=== PATIENT | female | born 1980 | race Caucasian/White ===

== ENCOUNTER 2016-10-15 12:21 | Outpatient (CLI) | payer BC ==
[~2016-10-15] VITALS: Ht 170.2 cm; Wt 68.9 kg
[~2016-10-15 12:21] MED LIST: AC325T PO; ACHD5005 PO; ACHYD1T PO; AMOX250C PO; FRS325T PO; HYDR1TAB75 PO; IBP800T PO
--- OUTSIDE RECORDS SUMMARY | 2016-10-15 12:25 | XMS REPORT | Continuity of Care Document ---
Author Author [facility] Organization [facility] Address Unknown Phone Unavailable Allergies Active Description Code Type Severity Reaction Onset Reported/Identified Relationship to Patient Clinical Status Yes albuterol [id number] Drug Allergy Unknown N/A 07/13/2007 Yes loratadine [id number] Drug Allergy Unknown N/A 07/13/2007 Medications Problems Date Dx Coded Attending Type Code Diagnosis Diagnosed By 08/04/2013 AMOR LAKE MD Ot 650 08/04/2013 AMOR LAKE MD Ot V04.81 08/04/2013 AMOR LAKE MD Ot V27.0 11/01/2014 ZE YEN Ot 784.2 Procedures Results Encounters ACCT No. Visit Date/Time Discharge Status Pt. Type Provider Facility Loc./Unit Complaint [id number] 10/16/2014 10:16:00 2014 23:59:59 CLS Outpatient ZE YEN [facility] RAD [id number] 08/03/2013 12:40:00 2012 20:40:00 DIS Inpatient AMOR LAKE MD [facility]
[2016-10-16] MEDS ORDERED: DEXT10TA9 PO (07:20)
[2016-10-16] MEDS ORDERED: OXYC-202 PO (07:20)
== END 2016-10-15 13:26 ==
LOC: PREOP 12:21
PROVIDERS: ATTEND Obstetrics & Gynecology
DX: Z01.818 Encounter for other preprocedural examination (principal); O02.1 Missed abortion

== ENCOUNTER 2016-10-16 06:27 | Day surgery (SDC) | payer BC ==
[~2016-10-16] VITALS: Ht 170.2 cm; Wt 68.9 kg
--- OUTSIDE RECORDS SUMMARY | 2016-10-16 06:30 | XMS REPORT | Continuity of Care Document ---
Author Author [facility] Organization [facility] Address Unknown Phone Unavailable Care Team Providers Care Senior National Account Manager Name Role Phone JAMILA PENA DO PCP Insurance Providers Payer Name Policy Number Subscriber Name Relationship [facility] [id number] Dacia Weaver 19 Self / Same As Patient Advance Directives Directive Response Recorded Date/Time Advance Directives No 10/15/16 1:10pm Health Care Power of Animal Ride Attendant No 10/15/16 1:10pm Organ Donor No 10/15/16 1:10pm Resuscitation Status Full Code 10/15/16 1:10pm Problems No problem information available. Medications Unable to obtain medications. Social History Social History Problem Response Recorded Date/Time Alcohol Use Denies Use 08/03/2013 2:24pm Recreational Drug Use No 08/03/2013 2:24pm Recent Foreign Travel No 08/03/2013 2:24pm Recent Infectious Disease Exposure No 08/03/2013 2:24pm Hospitalization with Isolation Denies 08/04/2013 9:26pm Sexually Transmitted Disease No 10/15/2016 1:10pm Smoking Status Former Smoker 10/15/2016 1:10pm Recent Hopitalizations No 10/15/2016 1:10pm Sexually Transmitted Disease No 10/15/2016 1:10pm Hospitalization with Isolation Denies 08/04/2013 9:26pm Hx Sexually Transmitted Disorders No 10/09/2010 9:40am Query Response Start Date Stop Date Smoking Status Former Smoker Hospital Discharge Instructions No hospital discharge instructions. Plan of Care Discharge Date 10/15/16 1:26pm Prescriptions See Medication Section Functional Status No functional status results. Allergies, Adverse Reactions, Alerts No known allergies. Immunizations No immunization records. Vital Signs Acute Vital Signs Vital Response Date/Time Height (Feet) 5 feet 10/15/2016 1:08pm Height (Inches) 7.00 inches 10/15/2016 1:08pm Height (Calculated Centimeters) 170.086205 cm 10/15/2016 1:08pm Weight (Pounds) 152 pounds 10/15/2016 1:08pm Weight (Ounces) 0.0 oz 10/15/2016 1:08pm Weight (Calculated Grams) 52092.04 gm 10/15/2016 1:08pm Weight (Calculated Kilograms) 68.983521 kilograms 10/15/2016 1:08pm Calculated BMI 23.8 10/15/2016 1:08pm Results No known relevant diagnostic tests, laboratory data and/or discharge summary. Procedures No known history of procedures. Encounters Encounter Location Arrival/Admit Date Discharge/Depart Date Attending Provider Registered Clinic [facility] 10/15/16 12:21pm AMOR LAKE MD
--- OUTSIDE RECORDS SUMMARY | 2016-10-16 06:30 | XMS REPORT | Continuity of Care Document ---
Author Author [facility] Organization [facility] Address Unknown Phone Unavailable Care Team Providers Care Supervisor Power Reactor Name Role Phone JAMILA PENA DO PCP Insurance Providers Payer Name Policy Number Subscriber Name Relationship [facility] [id number] Dacia Weaver 19 Self / Same As Patient Advance Directives Directive Response Recorded Date/Time Advance Directives No 10/15/16 1:10pm Health Care Power of Funeral Home Location Manager No 10/15/16 1:10pm Organ Donor No 10/15/16 [...] 7.00 inches 10/15/2016 1:08pm Height (Calculated Centimeters) 170.168040 cm 10/15/2016 1:08pm Weight (Pounds) 152 pounds 10/15/2016 1:08pm Weight (Ounces) 0.0 oz 10/15/2016 1:08pm Weight (Calculated Grams) 13946.04 gm 10/15/2016 1:08pm Weight (Calculated Kilograms) 68.851086 kilograms 10/15/2016 1:08pm Calculated BMI 23.8 10/15/2016 1:08pm Results No known relevant diagnostic tests, laboratory data and/or discharge summary. Procedures No known history of procedures. Encounters Encounter Location Arrival/Admit Date Discharge/Depart Date Attending Provider Registered Clinic [facility] 10/15/16 12:21pm AMOR LAKE MD
[2016-10-16] MEDS ORDERED: LACTATED RINGERS 1,000 ML IV PRN (06:36)
[2016-10-16] MEDS ORDERED: NS (IVPB) 50 ML ONE (06:36)
[2016-10-16] MEDS ORDERED: ceFAZolin 1,000 MG (ANCEF) VIAL ONE (06:36)
[2016-10-16] MEDS ORDERED: MIDAZOLAM 2 MG/2 ML (VERSED) VIAL ONE (07:00)
[2016-10-16] MEDS ORDERED: DEXAMETHASONE PF 10 MG/ML (DECADRON) VIAL ONE (07:00)
[2016-10-16] MEDS ORDERED: fentaNYL INJECTION 100 MCG/2 ML AMP ONE (07:00)
[2016-10-16] MEDS ORDERED: ONDANSETRON 4 MG/2 ML (SDV) Z0FRAN ONE (07:00)
[2016-10-16] MEDS ORDERED: LIDOCAINE PF 2% 10 ML (XYLOCAINE) AMP ONE (07:00)
[2016-10-16] MEDS ORDERED: proPOfol 200 MG/20 ML (DIPRIVAN) VIAL IV ONE ×2 (07:00→07:49)
[2016-10-16] MEDS ORDERED: LACTATED RINGERS 1,000 ML IV ONE (07:00)
[2016-10-16] MEDS ORDERED: SEVOFLURANE (ULTANE) 15 ML INHAL SOLN ONE (07:00)
[2016-10-16 07:09] VITALS: BP 110/71
[2016-10-16 07:15] LABS: MEAN PLATELET VOLUME 10.3 FL (7.4-10.4); RED BLOOD COUNT 4.06 10^6/uL (4.35-5.85); RED CELL DISTRIBUTION WIDTH 13.9 % (10.0-14.5); WHITE BLOOD COUNT 7.7 10^3/uL (4.3-11.0)
[2016-10-16] MEDS ORDERED: ceFAZolin 1 GM/NS 50 ML IVPB IV ONE ×2 (07:15)
[2016-10-16] MEDS ORDERED: D5 LR IV SOLUTION 1,000 ML IV SCH (07:18)
--- NOTE | 2016-10-16 07:18 | Progress Note-Pre Operative ---
Pre-Operative Progress Note H&P Reviewed The H&P was reviewed, patient examined and no changes noted. Date H&P Reviewed: Oct 16, 2016 Time H&P Reviewed: 07:17 Pre-Operative Diagnosis: missed AB at 14 weeks/IUFD AMOR LAKE MD Oct 16, 2016 7:18 am
[2016-10-16] MEDS ORDERED: DEXT10TA9 PO (07:20)
[2016-10-16] MEDS ORDERED: OXYC-202 PO (07:20)
--- NOTE | 2016-10-16 07:22 | Discharge Instructions ---
Discharge Instructions Discharge Medications New, Converted or Re-Newed RX: RX on Chart Patient Instructions Patient Instructions: as directed Return to The Hospital For: as directed Activity & Diet Discharge Diet: No Restrictions Activity as Tolerated: No Orders-Post D/C & Referrals Follow Up Appt: Call to make follow up appt. for patient in 2 weeks. Activity: Rest for 24 hours, than as tolerated. Diet: As tolerated-Clear Liquids only if nauseated. May shower or tub bathe as desired. No driving for 24 hours, no alcoholic beverages for 24 hours, and nothing per vagina (no tampons, douching, or intercourse) for 2 weeks. Patient to return to the clinic as soon as possible for: Temperature greater than 101F, Severe Pain, Foul discharge from incision or vagina, Excessive Bleeding (more than a period). AMOR LAKE MD Oct 16, 2016 7:22 am
[2016-10-16] MEDS ORDERED: oxyCODONE/APAP 10/325MG (PERCOCET 10) TABLET PO PRN (07:30)
[2016-10-16] MEDS ORDERED: ONDANSETRON 4 MG/2 ML (SDV) Z0FRAN IVP PRN ×2 (07:30→08:15)
[2016-10-16] MEDS ORDERED: MEPERIDINE (DEMEROL) INJ 100 MG/ML IM ONE (07:30)
[2016-10-16] MEDS ORDERED: KETOROLAC 30 MG/ML VIAL IVP ONE (07:30)
[2016-10-16] MEDS ORDERED: PROMETHAZINE INJ 25 MG/ML (PHENERGAN) AMP IM ONE (07:30)
[2016-10-16] MEDS ORDERED: MEPERIDINE (DEMEROL) INJ 50 MG/ML IVP PRN (08:15)
[2016-10-16] MEDS ORDERED: KETOROLAC 30 MG/ML VIAL ONE (08:24)
[2016-10-16] MEDS ORDERED: morphine INJ 10 MG/ML 1ML (SYR OR VIAL) ONE (08:25)
[2016-10-16] MEDS: morphine INJ 10 MG/ML 1ML (SYR OR VIAL) IVP PRN ×3 (08:37→08:42)
[2016-10-16 09:10] VITALS: BP 101/61
[2016-10-16 09:40] VITALS: BP 106/66
[2016-10-16 10:10] VITALS: BP 109/67
[2016-10-16 10:40] VITALS: BP 109/67
--- NOTE | 2016-10-18 07:48 | OPERATIVE REPORT ---
PROCEDURE PHYSICIAN: AMOR LAKE DATE OF PROCEDURE: PREOPERATIVE DIAGNOSIS: Second trimester demise. POSTOPERATIVE DIAGNOSIS: Second trimester demise. OPERATIVE PROCEDURE: D&C. OPERATIVE DESCRIPTION: With the patient in supine position, under satisfactory general anesthesia, she was repositioned in the dorsal lithotomy position in the [facility] stirrups and prepped and draped usual fashion for vaginal surgery. The urinary bladder was emptied with a straight catheter. A weighted speculum placed in posterior fornix of the vagina. Cervix exposed and grasped anteriorly with single-tooth tenaculum. The uterus sounded to 14 cm of uterine sound. The cervix was then serially dilated with Tato dilators to a number 20 Tato and then Hegar dilators were used to go to a number 18 Hegar. Ring clamp was introduced and parts were extracted removing upper extremities and then the torso with the lower extremities still attached and then the calvarium what with what looked to be a very large cystic hygroma. The uterine cavity was then vacuum curetted to remove a fairly large placental tissue and then sharp curettage was performed with removal of a small amount of additional tissue. The endometrial cavity was then suctioned, curettaged a final time with removal of a small amount of blood clot and tissue and debris. Abdomenal ultrasound was then performed showing an empty uterus. The procedure was complete at this point. Tenaculum was removed. There was some bleeding from the puncture sites on the cervix. This was touched with silver nitrate to affect hemostasis. Sponge and needle counts were correct on completion of the procedure. Estimated blood loss was around 200 mL. The patient tolerated the procedure well, and was uneventfully awakened from general anesthesia and transferred to the recovery room in stable condition with plans for discharge home PAR. Job ID: [id number] Dictated Date: 10/16/2016 07:59:48 Emergency Operator Date: 10/18/2016 07:41:17 / cece ORDONEZ
== END 2016-10-16 10:40 | disposition home or self-care (01) ==
LOC: SDC 06:27
PROVIDERS: ATTEND Obstetrics & Gynecology
DX: O02.1 Missed abortion (principal); Z3A.14 14 weeks gestation of pregnancy
CPT/HCPCS: 36415; 85027; 87081; 88305

== ENCOUNTER → 2018-05-27 | Outpatient (CLI) | payer OTHER ==
[~2018-05-27] MED LIST changes: +DEXT10TA9 PO; +IBUP-1780 PO; +OXYC1TAB12 PO
--- NOTE | 2018-05-27 16:40 | Diagnostic Imaging Report ---
Right hip at 2:03 p.m. INDICATION: Hip pain. AP and lateral views are obtained. There are no prior studies available for comparison. FINDINGS: There is no fracture, dislocation or acute bony abnormality evident. The hip and sacroiliac joint on the right are fairly well maintained. The soft tissues are unremarkable. IMPRESSION: There is no evidence for an acute bony abnormality. Dictated by: Dictated on workstation # [id number]
== END ==
LOC: RAD 13:29
PROVIDERS: ATTEND Family Medicine
DX: M25.551 Pain in right hip (principal)
CPT/HCPCS: 73502

== ENCOUNTER → 2022-10-09 | Outpatient (CLI) | payer OTHER ==
--- NOTE | 2022-10-09 14:55 | Diagnostic Imaging Report ---
INDICATION: Routine screening. No prior mammograms are available for comparison. This is a baseline study. 2-D and 3-D bilateral screening mammography was performed with CAD. Scattered fibroglandular densities are identified bilaterally. No mass or malignant-appearing microcalcifications are seen. Axillae are unremarkable. IMPRESSION: No mammographic features suspicious for malignancy are identified. ACR BI-RADS Category 1: Negative. Result letter will be mailed to the patient. Note: At least 10% of breast cancer is not imaged by mammography. BI-RADS Category 1 Dictated by: Dictated on workstation # [id number]
== END ==
LOC: RAD 09:19
PROVIDERS: ATTEND Internal Medicine
DX: Z12.31 Encounter for screening mammogram for malignant neoplasm of breast (principal)
CPT/HCPCS: 77063; 77067